=== PATIENT | female | born 1965 | race Caucasian/White ===

== ENCOUNTER 2025-06-27 17:17 | Inpatient (IN) | payer BC ==
[~2025-06-27] VITALS: Ht 165.1 cm; Wt 40.0 kg
[2025-06-27 17:59] LABS: MEAN PLATELET VOLUME 6.2 FL (7.4-10.4); RED CELL DISTRIBUTION WIDTH 15.5 % (11.5-14.5)
[2025-06-27 18:07] LABS: INR 1.1 INR
[2025-06-27 18:11] LABS: CREATININE 0.39 MG/DL (0.40-0.90); TOTAL CARBON DIOXIDE 25.3 MMOL/L (24-32); eCRCL 99 ML/MIN; eGFR > 90 ML/MIN
--- NOTE | 2025-06-27 18:14 | Physician Documentation ---
History of Present Illness ~ Chief Complaint: See Chief Complaint Stated Complaint: GI BLEED Time Seen by MD: 18:02 HPI Patient presents to the emergency room as a transfer from [facility] for presumed GI bleed. She has been feeling weak lately and has been attributing this to her thyroid. She followed up with her rubber chemist yesterday who had labs performed and told her to go to the emergency room as she needed an emergent transfusion. She does endorse chronic NSAID use. Denies blood thinners or significant alcohol abuse. She does endorse black stools however she attributed this to Pepto-Bismol she has been taking. She states she feels a bit better since the transfusion of 2 units at [facility]. Medication Reconciliation Allergies: Coded Allergies: No Known Allergies (Unverified , 06/27/25) Scheduled Propranolol Hcl* (Inderal*), 1 TAB PO BID, (Reported) Review of Systems ROS All review of systems negative except as per HPI Physical Exam Vital Signs: Temperature: 98.7, Source: Oral, Heart Rate: 95, Respiratory Rate: 16, BP: 138/68, Pulse Oximetry: 99, Weight: 41.200 Oxygen Flow Rate: 0 Physical Exam General: Patient is awake, alert, oriented x4 in no acute distress Head: Normocephalic and atraumatic. Eyes: Conjunctival normal. EOMI. PERRL. ENT: Mucous membranes moist. Neck: Supple, trachea is midline. Chest: Clear to auscultation bilaterally without rales, rhonchi, or wheezes. There is no accessory muscle use or retractions. Cardiac: RRR without murmurs, gallops, or rubs. Abd: Soft, nondistended, nontender, with normoactive bowel sounds. No guarding, rebound, or rigidity. Progress Progress Note I have spoken with junior web designer who is aware of patient. Results/Orders Results/Orders Orders - DONATO PIERRE MD Page Hospitalist (06/27/25 18:22) Fill Out Med Reconciliation (06/27/25 18:22) Pantoprazole 40mg/Ns 100ml Bag (Protonix (06/27/25 18:29) Medications Received in ER Medications (Trade) Dose Ordered Sig/Shahnaz Route PRN Reason Start Time Stop Time Status Last Admin Dose Admin Pantoprazole Sodium 100 ml @ 20 mls/hr Q5H IV 06/27/25 18:29 06/27/25 18:54 20 MLS/HR Vital Signs 06/27/25 06/27/25 06/27/25 17:19 17:29 18:28 Temp 98.7 Pulse 95 87 Resp 17 16 16 B/P (MAP) 138/68 131/82 (98) Pulse Ox 99 99 O2 Flow Rate 0 0 Laboratory Tests Test 06/27/25 17:45 White Blood Count 5.6 Red Blood Count 2.84 L Hemoglobin 8.5 L Hematocrit 25.9 L Mean Corpuscular Volume 91.1 Mean Corpuscular Hemoglobin 29.9 Mean Corpuscular Hemoglobin Concent 32.8 L Red Cell Distribution Width 15.5 H Platelet Count 405 Mean Platelet Volume 6.2 L Neutrophils (%) (Auto) 76.6 H Lymphocytes (%) (Auto) 10.1 L Monocytes (%) (Auto) 7.4 Eosinophils (%) (Auto) 5.5 Basophils (%) (Auto) 0.4 Neutrophils # (Auto) 4.3 Lymphocytes # (Auto) 0.6 L Monocytes # (Auto) 0.4 Eosinophils # (Auto) 0.3 Basophils # (Auto) 0.0 CBC Comment Prothrombin Time 11.4 INR International Normalized Ratio 1.1 Coagulation Comments Sodium Level 140 Potassium Level 3.6 Chloride Level 106 Carbon Dioxide Level 25.3 Anion Gap 9 Blood Urea Nitrogen 11 Creatinine 0.39 L Estimated GFR/1.73 m2 > 90 BUN/Creatinine Ratio 28.2 H Glucose Level 99 Calcium Level 7.7 L Total Bilirubin 2.0 H Aspartate Amino Transf (AST/SGOT) 26 Alanine Aminotransferase (ALT/SGPT) 20 Alkaline Phosphatase 105 Total Protein 5.8 L Albumin 2.7 L Globulin 3.1 Albumin/Globulin Ratio 0.9 L Chemistry Comments Medical Decision Making Additional information obtaine: other Findings Patient presents to the emergency room as a transfer for GI bleed status post transfused 2 units from [facility]. Patient's blood pressure is reassuring and tachycardia has improved. She has been gaining to feel better. I have consulted with junior web designer and started Protonix drip. Diff Dx GI Bleed:Consideration: Include: AE fistula, Angiodysplasia, Bleeding diathesis, Blood loss anemia, Carcinoma, Diverticulosis, Diverticulitis, Esophageal varicies, Esophagitis, Gastritis, Gastroenteritis, Inflammatory BD, Jenelle-Alberto syndrome, Meckel's diverticulum, PUD, Other Departure Admitted to Inpatient Unit: yes, to hospitalist Impression: Primary Impression: GI bleed Additional Impression: Anemia Condition: Guarded Referrals: NO PRIMARY CARE PROVIDER (PCP) Critical Care Note Total Time (mins): 30 Critical Care Note The very real possibility of a deterioration of this patient's condition required the highest level of my preparedness for sudden, emergent intervention. I provided critical care services, which included medication orders, frequent reevaluations of the patient's condition and response to treatment, ordering and reviewing test results, and discussing the case with various consultants. Excludes time spent performing separately billable procedures. The critical care time associated with the care of the patient was 30 minutes not counting procedures Signature Scribe Signature: No scribe Attestation: The note accurately reflects work and decisions made by me.Donato Pierre MD 06/27/25 19:10 DONATO PIERRE MD Jun 27, 2025 18:14
[2025-06-27] MEDS ORDERED: PROP10TA10 PO (18:35)
[2025-06-27] MEDS: pantoprazole 40MG/NS 100ML BAG 100 ML IV SCH (18:54)
[2025-06-27] MEDS ORDERED: ondansetron 4mg rapidly disintigrating tab PO PRN (19:20)
[2025-06-27] MEDS ORDERED: ondansetron/PF 4mg/2ml inj IV PRN (19:20)
[2025-06-27] MEDS ORDERED: potassium Cl 20 mEq SR tablet PO PRN (19:20)
[2025-06-27] MEDS ORDERED: magnesium sulf-water 2g/50mL 50 ML IV PRN (19:20)
[2025-06-27] MEDS ORDERED: mag hydrox/Alum hydrox/simeth 30ml oral suspension PO PRN (19:20)
[2025-06-27] MEDS ORDERED: HYDROmorphone/PF 0.2 MG/ML SYRINGE IV PRN (19:20)
[2025-06-27] MEDS ORDERED: magnesium sulf-water 4G/100mL 100 ML IV PRN (19:20)
[2025-06-27] MEDS ORDERED: potassium Cl 40MEQ/1/2NS 520ml 520 ML IV PRN (19:20)
[2025-06-27] MEDS ORDERED: magnesium hydroxide 30ml (MOM) UD suspension PO PRN (19:20)
[2025-06-27] MEDS ORDERED: HYDROmorphone inj. 0.5 MG/0.5 ML DISP.SYRIN IV PRN (19:20)
[2025-06-27] MEDS ORDERED: magnesium Cl slow-release 64mg tablet PO PRN (19:20)
--- NOTE | 2025-06-27 19:31 | HISTORY AND PHYSICAL-Residence ---
History & Physical Providers to CC Resident Creating Document: KLEVER NEGRO, RES ~ History of Present Illness Reason for Admit\Complaint: Melena History of Present Illness This is a 60 year-old female with a past medical history of Hypertension, Hypothyroidism, and Chronic back pain, who was transferred from [facility] for evaluation of presumed gastrointestinal bleeding. The patient reports mild generalized weakness, dizziness, and intermittent palpitations over the past few days. She also endorses mild epigastric abdominal pain. She has been feeling increasingly fatigued and initially attributed her symptoms to her thyroid condition. She was evaluated by her clothing manager yesterday, who performed laboratory tests and advised her to go to the emergency department for an emergent blood transfusion. She received 2 units of packed red blood cells at the transferring facility and reports some improvement in her symptoms since the transfusion. She endorses chronic NSAID use for back pain. She denies use of blood thinners or significant alcohol consumption. She reports black, tarry stools , which she initially attributed to Pepto-Bismol use. She denies hematemesis, nausea, vomiting, hemoptysis, hematochezia, diarrhea, abdominal distension, early satiety, weight loss, jaundice, or recent changes in appetite. She also denies chest pain, shortness of breath, orthopnea, paroxysmal nocturnal dyspnea, or lower extremity edema. Allergies: Coded Allergies: No Known Allergies (Unverified , 06/27/25) Home Medications Home Medications Active Reported Inderal* (Propranolol HCl) 10 Mg Tablet 1 Tab PO BID Past Medical History Past Medical History Hypertension Hypothyroidism Chronic back pain Past Surgical History Surgical History Comment Thyroid surgery Past Social History Social History Comment Primary care physician-Dr. 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 Patient with alcohol 6 months ago-previously she used to drink 3 glasses of wine every day She is in non smoker, not a drug use Code-full ROS Constitutional: Reports: no symptoms reported Eyes: Reports: no symptoms reported ENT: Reports: no symptoms reported Respiratory: Reports: no symptoms reported Cardiovascular: Reports: no symptoms reported Gastrointestinal: Reports: melena Genitourinary: Reports: no symptoms reported Female Genitalia: Reports: no reported symptoms Neurological: Reports: dizziness (when stands up suddenly from Sitting position ) Musculoskeletal: Reports: back pain Integumentary: Reports: no symptoms reported Allergic/Immunologic: Reports: no symptoms reported Hematologic/Lymphatic: Reports: anemia Endocrine: Reports: no symptoms reported Psychiatric: Reports: no symptoms reported Exam Vitals: Vital Signs Date Time Temp Pulse Resp B/P (MAP) Pulse Ox O2 Delivery O2 Flow Rate FiO2 06/27/25 18:28 87 16 131/82 (98) 99 0 06/27/25 17:19 98.7 General: GENERAL: Thin built, Awake, alert, oriented x4. No acute distress. HEENT : Normocephalic, atraumatic, pupils equal and reactive to light, extraocular movements intact,conjunctival pallor present, no scleral icterus or ,oral mucosa moist NECK: neck is supple, trachea midline, no lymphadenopathy, thyroid nodules felt on palpation, no JV distention RESPIRATORY: Chest expansion equal bilaterally, breath sounds vesicular, no wheezes, or rhonchi. No use of accessory muscles, no tenderness on palpation. CARDIOVASCULAR: S1 and S2 heard, no murmurs, no rubs, or gallops ABDOMEN: Soft, tenderness present on epigastric region, nondistended, bowel sounds present and normoactive. No organomegaly, no palpable mass, no rebound or guarding NEUROLOGICAL: Alert, oriented, normal memory, speech is normal Cranial nerves II-XII- intact Motor strength 5/5 Sensation-intact in all extremities Reflexes +2 and symmetrical Coordination is intact EXTREMITIES: Nodular swelling noted around PIP and DIP joints , peripheral pulses felt, no deformities Psychiatric:Appropriate mood and affect,No hallucinations or suicidal ideation Diagnostic Data Last Recorded Lab Results: 06/27/25 1745 06/27/25 1745 Diagnostic Data: Laboratory Tests Test 06/27/25 17:45 Prothrombin Time 11.4 SECONDS (9.0-12.0) INR International Normalized Ratio 1.1 INR Coagulation Comments Advance Care Planning Advanced Care plannin - 30 Minutes Additional Plan 60 years old female past medical history of hypertension, hypothyroidism is currently evaluated for upper GI bleed Melena possible 2/2 Upper GI bleed Normocytic anemia possibly 2/2 upper GI bleed Hemodynamically stable H/H-8.01/22.9 Patient has a History of Chronic NSAID use, she reports her stools are dark tarry . Per ED patient received 2 units of PRBC Started on IV NS 75cc per Hr and IV Protonix Transfuse PRBC if Hb <7 ED Doctor Consulted refrigeration lead-Patient will be on NPO from midnight and Possible EGD tomorrow Monitor H&H Q6H Hypertension controlled patient takes propronolol for blood pressure, Continue home med after med rec Hyperbilirubinemia total bilirubin is 2.0, follow up with ultrasound abdomen Hypothyroidism Patient has a long history of hypothyroidism for which she used to take levothyroxine.currently She is not taking any Medications. Protein malnutrition Patient is currently on NPO, we will start ensure enlive Code Status:full DVT prophylaxis: SCDs Analgesia/Sedation: Morphine Line/tube:Peripheral Nutrition: NPO from Midnight PT:Ordered Prognosis:Gaurded Disposition: Patient will be monitored in PCU. Npo from Midnight EGD tomorrow Klever Negro PGY1-Internal Medicine Resident Patient was assessed and case discussed with resident. I agree with the H&P and assessment and plan as above, with no change. Chioma Gardiner MD Critical Care Date of Service: Jun 27, 2025 Billing Provider: CHIOMA GARDINER MD, SATISH, RES Jun 27, 2025 19:31 CHIOMA GARDINER MD Jun 29, 2025 18:59
[2025-06-27] MEDS: K and/or MAG REPLACEMENT MC SCH (20:00)
[2025-06-27] MEDS: docusate sod 100mg capsule PO SCH (20:00)
[2025-06-27] MEDS: normal saline 1000ml 1,000 ML IV SCH (21:04)
[2025-06-27 22:00] VITALS: BP_SYST 127; BP_SYST 129; BP_SYST 140; BP_DIAS 74; BP_DIAS 78; BP_DIAS 79; PULSE 112; PULSE 90; PULSE 94; RESP 20; TEMP 99.1; O2SAT 98
[2025-06-27 22:12] LABS: MEAN PLATELET VOLUME 6.2 FL (7.4-10.4); RED CELL DISTRIBUTION WIDTH 15.6 % (11.5-14.5)
[2025-06-28] VITALS (16 sets, daily range): BP systolic 103–136; BP diastolic 61–80; PULSE 67–102; RESP 13–17; TEMP 97.4–98.6; O2SAT 93–99
[2025-06-28 04:20] LABS: MEAN PLATELET VOLUME 6.2 FL (7.4-10.4); RED CELL DISTRIBUTION WIDTH 15.9 % (11.5-14.5)
[2025-06-28 04:33] LABS: % IRON SATURATION 85 % (11-46)
[2025-06-28 04:36] LABS: CREATININE 0.35 MG/DL (0.40-0.90); TOTAL CARBON DIOXIDE 24.9 MMOL/L (24-32); eCRCL 110 ML/MIN; eGFR > 90 ML/MIN
[2025-06-28 06:08] LABS: LEUKOCYTE ESTERASE ,URINE NEGATIVE (Neg); NITRITES, URINE NEGATIVE (Neg); OCCULT BLOOD,URINE NEGATIVE (Neg)
[2025-06-28 06:11] LABS: UA COLLECTION TYPE NON-SPECIFIED
[2025-06-28] MEDS ORDERED: LIDOcaine 2% Viscous 15ml cup ONE (08:19)
--- NOTE | 2025-06-28 10:13 | CONSULTATION REPORT - RESIDENT ---
Consult Providers to CC Resident Creating Document: RADHA MARROQUINHIREN History of Present Illness Reason for Admit\Complaint: Transferred from outside facility for evaluation of suspected GI bleed History of Present Illness The patient is a 60-year-old female with history of hypertension, hypothyroidism, and chronic back pain who was transferred from [facility] for of chronic anemia and GI bleeding. She initially presented to the outside facility with generalized weakness, dizziness, and intermittent palpitations. She also reported intermittent epigastric abdominal pain. The day prior to transfer, she was seen by her seismic observer for thyroid related symptoms, during which lab work revealed severe anemia. Subsequently, she was referred to [facility] evaluation. That facility, she received 2 units of PRBC and was then transferred to our hospital for further evaluation and management. The patient reports intermittent use of ibuprofen, two tablets twice daily for the past two months, for chronic pain. She also notes black stools, which she attributed to Pepto-Bismol use. She has never undergone a colonoscopy or EGD in the past. Allergies: Coded Allergies: No Known Allergies (Unverified , 06/27/25) Home Medications Home Medications Active Reported Inderal* (Propranolol HCl) 10 Mg Tablet 1 Tab PO BID Past Medical History Past Medical History Hypertension, Hypothyroidism, Chronic back pain Past Surgical History Surgical History Comment Thyroid surgery Family History Family History: FH: stomach cancer FATHER, Onset:60 years & older Family member FATHER, Onset:85 Past Social History Social History Comment Lives in her home with the , ambulate without assistance. Alcohol use disorder, sober for six months. Exam Vitals: Vital Signs Date Time Temp Pulse Resp B/P (MAP) Pulse Ox O2 Delivery O2 Flow Rate FiO2 06/28/25 07:09 14 98 Room Air 06/28/25 06:00 65 06/28/25 06:00 97.4 117/71 (86) 06/27/25 21:02 0 General: Thin built, awake alert and oriented HEENT: Conjunctiva pale, mucous membrane dry Neck: Supple without masses and tenderness. Resp: Unlabored. Lungs clear to auscultation bilaterally. Heart: Regular Rate and rhythm, normal S1 and S2 without murmur, rub or gallop. Abdomen: Soft and non tender no organomegaly Extremities: Nodular swelling both hands Skin: Warm and Dry. Diagnostic Data Last Recorded Lab Results: 06/28/2540806/28/25408 Diagnostic Data: Laboratory Tests Test 06/27/25 17:45 Prothrombin Time 11.4 SECONDS (9.0-12.0) INR International Normalized Ratio 1.1 INR Coagulation Comments Additional Plan Assessment and plan: Patient is a 60-year-old male with a history of hypertension and chronic back pain, transfer for evaluation of suspected gastrointestinal bleeding. She has received her nurse. Procedure the transferring facility. Current hemoglobin is 7.7 and hematocrit 23.5%. She reports melena but has no evidence of active hematopoiesis. She is hemodynamically stable. Suspected Upper GI bleed Melena, anemia, NSAID use The patient presents with epigastric pain, melena, and anemia received 2 pRBC to the transferring facility Likely NSAID induced gastritis or peptic ulcer disease given history of chronic ibuprofen use She will be kept NPO EGD is indicated today to evaluate for upper GI source of bleeding Continue IV Protonix Monitor h H/H and transfuse as indicated If EGD does not reveal any upper GI source, colonoscopy will be performed subsequently to evaluate for a lower GI source of bleeding and to complete diagnostic workup, given chronic anemia and no prior colonoscopy history Hypertension Hypothyroidism Protein calorie malnutrition Continue management per primary team Radha Marroquin Internal Medicine Resident, PGY-3 Date of Service: Jun 28, 2025 Billing Provider: TEREZA ANDREWS MD,RADHA, RES Jun 28, 2025 10:13
[2025-06-28] MEDS ORDERED: MIDAZolam 1 MG/ML 5ML VIAL ONE (10:28)
[2025-06-28] MEDS ORDERED: fentaNYL/PF 50MCG/1 ML 2ML syringe ONE (10:28)
--- NOTE | 2025-06-28 13:25 | PROGRESS NOTE- Residence ---
Progress Note - Resident Providers to CC Resident Creating Document: PATRICIA PETERSSUN, RES ~ Antibiotic Timeout Antibiotic Ordered?: No Subjective The patient has been evaluated at the bedside. The patient currently denies any abdominal pain, chest pain, shortness of breath or fever sensation. Patient states that her last bowel movement was yesterday. Objective Vital Signs Date Time Temp Pulse Resp B/P (MAP) Pulse Ox O2 Delivery O2 Flow Rate FiO2 06/28/25 11:10 86 17 115/67 (83) 99 Room Air 0.0 06/28/25 10:40 97.5 Physical exam: General: Awake, alert, oriented. No acute distress. Well-developed, hydrated and well-built nourished. No anemia, Jaundice or clubbing. HEENT: Conjunctive are pink, sclerae clear, no icterus, pupil is equal in both sides, reactive to light, no ear discharge, no pharyngeal erythema or an edema. Neck: Supple, no adenopathy, thyromegaly. Trachea is midline. No JVD. Chest: Respiratory: Vesicular breath sounds. No ronchi, crepitus or wheezing. Resonance is normal upon percussion of all lung alejandro. Cardiovascular: S1-S2 regular sinus rhythm and, regular rate, no gallops, no rubs, no murmurs Abdomen: No visible distention, Bowel sounds present on auscultation, on palpation: soft, nontender, no guarding, no rigidity. Extremities: No obvious deformities, no pitting edema bilaterally, capillary refill intact, peripheral pulsations are intact on both sides Neurologic: Mental status: alert and conscious, oriented to place, person and time, preserved memory, normal speech. Cranial nerves I-XII: Normal. Motor system: Preserved power, coordination, no evidenced involuntary movements, strength 5/5 in four extremities. Sensory system: Preserved temperature, pain and vibration sensation. 2+ deep tendon reflexes in biceps, triceps, quadriceps. Negative Babinski. Cerebellar: No nystagmus, dysdiadochokinesia, normal [id number] testing. Skin: Warm and dry. Result Diagram: 06/28/2540806/28/25408 Coagulation Studies Laboratory Tests Test 06/27/25 17:45 Prothrombin Time 11.4 SECONDS (9.0-12.0) INR International Normalized Ratio 1.1 INR Coagulation Comments Assessment Assessment 60-year-old female patient admitted to the hospital transferred from [facility] with chief complaint of melena. Plan Plan Upper gastrointestinal bleeding-ruled out: A: The patient was transferred from [facility] due to the concern of upper GI bleeding after the patient presented with episodes of melena. The patient was using NSAIDs chronically "Aleve and ibuprofen" Hemoglobin and hematocrit remained stable. EGD done on 06/28/2025: Showed normal esophagus. Normal stomach. Biopsied. Normal duodenum. Plan: Plan for colonoscopy tomorrow. Clear liquid diet today. Patient will need follow pathology results. GoLYTELY for colonoscopy. Continue to monitor H&H. Transfuse if hemoglobin levels dropped <7. Avoid NSAIDs. Normocytic hypochromic anemia: Hemoglobin 7.7, hematocrit 23.4, MCV 91.8. Iron: 217, TIBC 254, percentage saturation 85. Possible due to recent transfusion of 2 units at the other facility. Plan: Continue to monitor CMP. Hypertension: Blood pressure currently well controlled. Plan: Continue to monitor blood pressure. Hypothyroidism: The patient was taking levothyroxine 25 mcg daily. Currently she is not taking any medications. Follow-up TSH in a.m. Moderate malnutrition: Albumin levels 2.7, BMI 15.1. Plan: Multivitamins with iron to be started tomorrow after colonoscopy. Code status: Full code DVT prophylaxis: SCDs Analgesia/sedation: Dilaudid Line/tube: PIV GI prophylaxis: Protonix Nutrition: Clear liquid diet PT: Yes Prognosis: Guarded Disposition: Continue medical management. Plan for colonoscopy tomorrow. Sun Peters Internal Medicine Resident [facility] Date of Service: Jun 28, 2025 Billing Provider: SAL RUIZ MD Common Visit Codes: [id number] INP/OBS CARE(HIGH) SUN REDDING, RES Jun 28, 2025 13:25 SAL RUIZ MD Jun 28, 2025 19:33
[2025-06-28 13:31] LABS: MEAN PLATELET VOLUME 6.4 FL (7.4-10.4); RED CELL DISTRIBUTION WIDTH 16.0 % (11.5-14.5)
--- NOTE | 2025-06-28 13:59 | RADIOLOGY REPORT ---
INDICATION: Hyperbilirubinemia TECHNIQUE: Multiple real-time sonographic images of the abdomen were obtained. COMPARISON: None FINDINGS: The liver is heterogeneous in echogenicity. The liver measures 15cm. No intrahepatic biliary ductal dilatation is noted. Mild hepatic cirrhosis The gallbladder wall measures 0.3 cm and is unremarkable. No gallstones or sludge is seen. The common duct measures 0.4 cm and is unremarkable. No pericholecystic fluid is noted. Small volume ascites. Trace pericholecystic fluid. The right kidney measures 11cm. No hydronephrosis. T The pancreas is not well visualized due to obscuration from bowel gas. The visualized portions of the IVC and aorta are grossly unremarkable. IMPRESSION: Small volume ascites. Trace pericholecystic fluid. Heterogeneous structure seen superior to the pancreas measuring 6 x 4 x [address] examination. Hepatic cirrhosis.
[2025-06-28] MEDS: PEG 3350/Na sulf,bicarb,Cl/KCl oral sol 4 liter bottle PO ONE (16:13)
[2025-06-28] MEDS: potassium Cl 20 mEq SR tablet PO PRN (16:42)
[2025-06-28] MEDS ORDERED: HYDROmorphone/PF 0.2 MG/ML SYRINGE IV PRN (19:35)
[2025-06-28] MEDS: Ensure Enlive - 237ML PO SCH (20:00)
[2025-06-28 20:30] LABS: MEAN PLATELET VOLUME 6.5 FL (7.4-10.4); RED CELL DISTRIBUTION WIDTH 16.6 % (11.5-14.5)
[2025-06-28 23:04] LABS: ABSOLUTE RETICS # 176000.0 /CUMM (23000-93000)
[2025-06-28 23:28] LABS: LACTATE DEHYDROGENASE 139.0 U/L (81-234)
[2025-06-29] VITALS (18 sets, daily range): BP systolic 109–140; BP diastolic 69–82; PULSE 63–99; RESP 11–18; TEMP 98.1–98.6; O2SAT 94–100
[2025-06-29 01:25] LABS: MEAN PLATELET VOLUME 6.4 FL (7.4-10.4); RED CELL DISTRIBUTION WIDTH 16.2 % (11.5-14.5)
[2025-06-29] MEDS ORDERED: fentaNYL/PF 50MCG/1 ML 2ML syringe ONE (07:54)
[2025-06-29] MEDS ORDERED: MIDAZolam 1 MG/ML 5ML VIAL ONE (07:55)
[2025-06-29] MEDS: propranolol 10mg tablet PO SCH (08:00)
[2025-06-29 10:12] LABS: MEAN PLATELET VOLUME 6.7 FL (7.4-10.4); RED CELL DISTRIBUTION WIDTH 16.3 % (11.5-14.5)
[2025-06-29 10:34] LABS: BANDS% (MANUAL) 1.0 % (0-10); LYMPHOCYTES % (MANUAL) 10.0 % (21-51)
[2025-06-29 10:35] LABS: EOSINOPHILS % (MANUAL) 4.0 % (0-6); MONOCYTES % (MANUAL) 5.0 % (2-12); NEUTROPHILS % (MANUAL) 80.0 % (42-75); PLATELET ESTIMATE NORMAL
[2025-06-29 10:51] LABS: CREATININE 0.27 MG/DL (0.40-0.90); TOTAL CARBON DIOXIDE 24.9 MMOL/L (24-32); eCRCL 138 ML/MIN; eGFR > 90 ML/MIN
[2025-06-29] MEDS ORDERED: PANT-47 PO (10:56)
--- NOTE | 2025-06-29 17:03 | DISCHARGE SUMMARY-Residence ---
Discharge Summary Providers to CC Resident Creating Document: SUN REDDING, RES ~ Discharge Summary Admission Diagnosis: Upper GI bleed Hospital Course DATE OF ADMISSION: 06/27/2025 DATE OF DISCHARGE: 06/29/2025 Discharge Diagnosis\Comment: Upper gastrointestinal bleeding-ruled out Severe anemia Normocytic hypochromic anemia Liver cirrhosis-chronic Hypertension Hypothyroidism Severe malnutrition Operations\Procedures: EGD. Colonoscopy. Consultants: Facility Maintenance Supervisor Complications: None Condition on DC: Stable New Medications: Pantoprazole Sodium (PROTONIX tablet) 40 Mg Tablet.dr 40 MG PO DAILY for 30 Days, #30 TAB.SR Continued Medications: Propranolol Hcl* (Inderal*) 10 Mg Tablet 1 TAB PO BID, TAB Discharge Summary: HPI: This is a 60 year-old female with a past medical history of Hypertension, Hypothyroidism, and Chronic back pain, who was transferred from [facility] for evaluation of presumed gastrointestinal bleeding. The patient reports mild generalized weakness, dizziness, and intermittent palpitations over the past few days. She also endorses mild epigastric abdominal pain. She has been feeling increasingly fatigued and initially attributed her symptoms to her thyroid condition. She was evaluated by her coal sampler yesterday, who performed laboratory tests and advised her to go to the emergency department for an emergent blood transfusion. She received 2 units of packed red blood cells at the transferring facility and reports some improvement in her symptoms since the transfusion. She endorses chronic NSAID use for back pain. She denies use of blood thinners or significant alcohol consumption. She reports black, tarry stools , which she initially attributed to Pepto-Bismol use. She denies hematemesis, nausea, vomiting, hemoptysis, hematochezia, diarrhea, abdominal distension, early satiety, weight loss, jaundice, or recent changes in appetite. She also denies chest pain, shortness of breath, orthopnea, paroxysmal nocturnal dyspnea, or lower extremity edema. Hospital course: 60-year-old female patient transferred from [facility] for evaluation of intermediate gastrointestinal bleeding. The patient was admitted to the hospital, monitor of hemoglobin and hematocrit was started. During the night of 06/28/2025 severe anemia was evidenced reason for which the patient received a total of 3 units of transfusion two at [facility] and 1 unit during this hospitalization in [facility]. Facility Maintenance Supervisor was consulted who performed EGD which Showed normal esophagus. Normal stomach. Biopsied. Normal duodenum. Colonoscopy performed on 06/29/2025 did not show any signs of active bleeding, this did show internal hemorrhoids without active bleeding. The entire colon is normal. No specimens were collected. The patient was educated about NSAIDs and alcohol use. It was noted that iron levels was elevated in iron studies and % saturation too. The patient was recommended to follow-up with primary care physician regarding these severe anemia and masonry teacher as syed castillo. The patient remained hemodynamically stable, hemoglobin and hematocrit remained stable as well, the patient will be discharged home. Discharge course: The patient remained hemodynamically stable. The patient will be discharged with the following instructions: Come back to the emergency department or call 911 if severe fatigue, chest pain, shortness of breath, fever sensation, palpitations is evidenced. Take pantoprazole one tablet of 40 mg daily. Continue your home medication propranolol 10 mg one tablet b.i.d. Follow-up with your primary care physician within two weeks. Recommended follow-up with Hematology. Keep well hydrated. Strong recommendation to avoid NSAIDs like naproxen or ibuprofen and alcohol consumption. Recommended repeat colonoscopy in 10 years for screening purposes. Physical exam: General: Awake, alert, oriented. No acute distress. Cachectic. No anemia, Jaundice or clubbing. HEENT: Conjunctive are pink, sclerae clear, no icterus, pupil is equal in both s ides, reactive to light, no ear discharge, no pharyngeal erythema or an edema. Neck: Supple, no adenopathy, thyromegaly. Trachea is midline. No JVD. Chest: Respiratory: Vesicular breath sounds. No ronchi, crepitus or wheezing. Resonance is normal upon percussion of all lung alejandro. Cardiovascular: S1-S2 regular sinus rhythm and, regular rate, no gallops, no rubs, no murmurs Abdomen: No visible distention, Bowel sounds present on auscultation, on palpation: soft, nontender, no guarding, no rigidity. Extremities: No obvious deformities, no pitting edema bilaterally, capillary refill intact, peripheral pulsations are intact on both sides Neurologic: Mental status: alert and conscious, oriented to place, person and time, preserved memory, normal speech. Cranial nerves I-XII: Normal. Motor system: Preserved power, coordination, no evidenced involuntary movements, strength 5/5 in four extremities. Sensory system: Preserved temperature, pain and vibration sensation. 2+ deep tendon reflexes in biceps, triceps, quadriceps. Skin: Warm and dry. Vital Signs Date Time Temp Pulse Resp B/P (MAP) Pulse Ox O2 Delivery O2 Flow Rate FiO2 06/29/25 11:00 98.3 93 16 109/71 (84) 100 Room Air 06/29/25 09:10 0.0 Laboratory Tests Test 06/27/25 17:45 06/27/25 21:56 06/28/25 04:09 06/28/25 05:01 White Blood Count 5.6 X10'3 7.3 X10'3 5.6 X10'3 Red Blood Count 2.84 X10'6 2.55 X10'6 2.55 X10'6 Hemoglobin 8.5 g/dl 7.8 g/dl 7.7 g/dl Hematocrit 25.9 % 23.2 % 23.4 % Mean Corpuscular Volume 91.1 FL 91.2 FL 91.8 FL Mean Corpuscular Hemoglobin 29.9 PG 30.7 PG 30.1 PG Mean Corpuscular Hemoglobin Concent 32.8 g/dL 33.6 g/dL 32.8 g/dL Red Cell Distribution Width 15.5 % 15.6 % 15.9 % Platelet Count 405 X10'3 399 X10'3 399 X10'3 Mean Platelet Volume 6.2 FL 6.2 FL 6.2 FL Neutrophils (%) (Auto) 76.6 % 74.0 % Lymphocytes (%) (Auto) 10.1 % 11.9 % Monocytes (%) (Auto) 7.4 % 8.1 % Eosinophils (%) (Auto) 5.5 % 5.4 % Basophils (%) (Auto) 0.4 % 0.6 % Neutrophils # (Auto) 4.3 X10'3 4.1 X10'3 Lymphocytes # (Auto) 0.6 X10'3 0.7 X10'3 Monocytes # (Auto) 0.4 X10'3 0.4 X10'3 Eosinophils # (Auto) 0.3 X10'3 0.3 X10'3 Basophils # (Auto) 0.0 X10'3 0.0 X10'3 CBC Comment Prothrombin Time 11.4 SECONDS INR International Normalized Ratio 1.1 INR Coagulation Comments Sodium Level 140 MMOL/L 139 MMOL/L Potassium Level 3.6 MMOL/L 3.4 MMOL/L Chloride Level 106 MMOL/L 108 MMOL/L Carbon Dioxide Level 25.3 MMOL/L 24.9 MMOL/L Anion Gap 9 6 Blood Urea Nitrogen 11 MG/DL 9 MG/DL Creatinine 0.39 MG/DL 0.35 MG/DL Estimated GFR/1.73 m2 > 90 ML/MIN > 90 ML/MIN BUN/Creatinine Ratio 28.2 25.7 Glucose Level 99 MG/DL 99 MG/DL Calcium Level 7.7 MG/DL 7.4 MG/DL Total Bilirubin 2.0 MG/DL 1.8 MG/DL Aspartate Amino Transf (AST/SGOT) 26 U/L 27 U/L Alanine Aminotransferase (ALT/SGPT) 20 U/L 22 U/L Alkaline Phosphatase 105 IU/L 99 IU/L Total Protein 5.8 G/DL 5.4 G/DL Albumin 2.7 G/DL 2.4 G/DL Globulin 3.1 G/DL 3.0 G/DL Albumin/Globulin Ratio 0.9 0.8 Chemistry Comments Hematology Comments Iron Level 217 UG/DL Total Iron Binding Capacity 254 UG/DL Percent Iron Saturation 85 % Urine Specimen Description Non-specified Urine Color Yellow Urine Clarity Clear Urine pH 6.0 Urine Specific [place] 1.020 Urine Protein Negative mg/dl Urine Glucose (UA) Negative mg/dl Urine Ketones Trace mg/dl Urine Occult Blood Negative Urine Nitrite Negative Urine Bilirubin Negative Urine Urobilinogen 0.2 E.U/dL Urine Leukocyte Esterase Negative Urine Culture Indicated Not ind Volume Urine Centrifuged 10 ml Urine Comment Test 06/28/25 12:53 06/28/25 20:08 06/28/25 22:43 06/29/25 00:59 White Blood Count 4.7 X10'3 6.3 X10'3 5.4 X10'3 Red Blood Count 2.55 X10'6 2.74 X10'6 2.59 X10'6 2.36 X10'6 Hemoglobin 7.7 g/dl 8.3 g/dl 7.3 g/dl Hematocrit 23.4 % 25.1 % 21.7 % Mean Corpuscular Volume 91.5 FL 91.6 FL 92.0 FL Mean Corpuscular Hemoglobin 30.0 PG 30.4 PG 30.9 PG Mean Corpuscular Hemoglobin Concent 32.8 g/dL 33.2 g/dL 33.6 g/dL Red Cell Distribution Width 16.0 % 16.6 % 16.2 % Platelet Count 392 X10'3 452 X10'3 360 X10'3 Mean Platelet Volume 6.4 FL 6.5 FL 6.4 FL Hematology Comments Reticulocyte Count (auto) 6.8 % Absolute Reticulocyte Count [id number] /CUMM Direct Bilirubin 0.2 MG/DL Lactate Dehydrogenase 139 U/L Thyroid Stimulating Hormone (TSH) 0.05 ulU/ml Test 06/29/25 09:16 06/29/25 09:35 Chemistry Comments White Blood Count 5.1 X10'3 Red Blood Count 3.08 X10'6 Hemoglobin 9.4 g/dl Hematocrit 27.6 % Mean Corpuscular Volume 89.5 FL Mean Corpuscular Hemoglobin 30.6 PG Mean Corpuscular Hemoglobin Concent 34.2 g/dL Red Cell Distribution Width 16.3 % Platelet Count 399 X10'3 Mean Platelet Volume 6.7 FL Neutrophils (%) (Auto) 75.8 % Lymphocytes (%) (Auto) 10.6 % Monocytes (%) (Auto) 6.1 % Eosinophils (%) (Auto) 7.0 % Basophils (%) (Auto) 0.5 % Neutrophils # (Auto) 3.9 X10'3 Lymphocytes # (Auto) 0.5 X10'3 Monocytes # (Auto) 0.3 X10'3 Eosinophils # (Auto) 0.4 X10'3 Basophils # (Auto) 0.0 X10'3 CBC Comment Differential Total Cells Counted 100 Neutrophils % (Manual) 80.0 % Band Neutrophils % 1.0 % Lymphocytes % (Manual) 10.0 % Monocytes % (Manual) 5.0 % Eosinophils % (Manual) 4.0 % Platelet Estimate Normal Red Blood Cell Morphology Perf Basophilic Stippling Anisocytosis 1+ Sodium Level 137 MMOL/L Potassium Level 4.1 MMOL/L Chloride Level 104 MMOL/L Carbon Dioxide Level 24.9 MMOL/L Anion Gap 8 Blood Urea Nitrogen 2 MG/DL Creatinine 0.27 MG/DL Estimated GFR/1.73 m2 > 90 ML/MIN BUN/Creatinine Ratio 7.4 Glucose Level 99 MG/DL Calcium Level 8.1 MG/DL Ferritin 126 NG/ML Total Bilirubin 0.8 MG/DL Aspartate Amino Transf (AST/SGOT) 30 U/L Alanine Aminotransferase (ALT/SGPT) 22 U/L Alkaline Phosphatase 100 IU/L Total Protein 5.7 G/DL Albumin 2.5 G/DL Globulin 3.2 G/DL Albumin/Globulin Ratio 0.8 Thyroid Stimulating Hormone (TSH) 0.05 ulU/ml Free Thyroxine 1.30 NG/DL Imaging: Abdominal ultrasound: Small volume ascites. Trace pericholecystic fluid. Heterogeneous structure seen superior to the pancreas measuring 6 x 4 x [address] examination. Hepatic cirrhosis. *Problems/Diagnosis: (1) Anemia Status: Acute (2) Hemorrhoids Total Time Spent on D/C: > 30 Minutes Date of Service: Jun 29, 2025 Billing Provider: SAL RUIZ MD Common Visit Codes: 16659-IYR/OBS DISCH DAY >30min SUN REDDING, RES Jun 29, 2025 16:57 SAL RUIZ MD Jun 29, 2025 20:50
== END 2025-06-29 11:37 | disposition home or self-care (01) | DRG 377 ==
LOC: ER 17:18 → ED HOLD 19:11 → ORTHO 4S 21:46
PROVIDERS: ADMIT Internal Medicine Pulmonary Disease; ATTEND Internal Medicine
PROC: 0DB68ZX Excision of Stomach, Via Natural or Artificial Opening Endoscopic, Diagnostic (ICD-10-PCS; principal; 2025-06-28 10:33)
PROC: 0DJD8ZZ Inspection of Lower Intestinal Tract, Via Natural or Artificial Opening Endoscopic (ICD-10-PCS; 2025-06-29)
PROC: 30233N1 Transfusion of Nonautologous Red Blood Cells into Peripheral Vein, Percutaneous Approach (ICD-10-PCS; 2025-06-29)
DX: K92.1 Melena (principal); E43 Unspecified severe protein-calorie malnutrition; Z68.1 Body mass index [BMI] 19.9 or less, adult; I10 Essential (primary) hypertension; E03.9 Hypothyroidism, unspecified; D64.9 Anemia, unspecified; E80.6 Other disorders of bilirubin metabolism; K64.8 Other hemorrhoids; K74.69 Other cirrhosis of liver; D50.0 Iron deficiency anemia secondary to blood loss (chronic)
CPT/HCPCS: 36415; 36430; 43239; 45378; 76700; 80053; 81003; 82248; 82728; 83540; 83550; 83615; 84439; 84443; 85007; 85025; 85027; 85045; 85610; 86885; 86900; 86901; 86920; 87081; 99152; 99153; 99291; A4615; A4620; G0378; J2250; J2470; J3010; J7030; J7040; J7120; P9016